=== PATIENT | female | born 1930 | race Caucasian/White ===

== ENCOUNTER 2017-06-15 20:43 | Emergency (ER) | payer MEDICARE ==
--- NOTE | 2017-06-15 21:38 | RAD ---
CHEST TWO VIEWS: History: Dyspnea. Comparison: 06-30-13 FINDINGS: Cardiac silhouette is upper limits of normal in size. Pulmonary vasculature is also upper limits of n ormal with mild reticular nodular interstitial prominence. Mediastinum is midline with post-operative changes, aortic calcification, and a dual-lead left subclavian cardiac electronic device. There is n o lobar consolidation or evidence of pneumothorax. IMPRESSION: 1. Borderline cardiomegaly and pulmonary vascular congestion. 2. Atherosclerosis. POS: PANDA
[2017-06-15 21:55] LABS: #Basophils 0.1 thou/uL (0.0-0.2); #Eosinphils 0.2 thou/uL (0.0-0.7); #Lymphocytes 2.3 thou/uL (1.20-3.40); #Monocytes 0.8 thou/uL (0.11-0.59); #Neutrophils 4.9 thou/uL (1.40-6.50); %Basophils 1.3 % (0.0-1.0); %Eosinophils 2.1 % (0.0-10.0); %Lymphocytes 27.6 % (21.0-51.0); %Monocytes 9.1 % (0.0-10.0); %Neutrophils 59.8 % (42.0-75.0); Hemoglobin 12.2 g/dL (12.0-16.0); Mean Corpuscular HGB CONC 32.6 g/dL (32.0-36.0); Mean Corpuscular Volume 92.2 fl (81.0-99.0); Mean Platelet Volume 7.6 fL (7.4-10.4); Platelet Count 170 thou/uL (130-400); Red Blood Cell (RBC) Count 4.07 mill/uL (4.20-5.40); White Blood Cell (WBC) Count 8.3 thou/uL (4.8-10.8)
[2017-06-15 22:06] LABS: ALT (SGPT) 28 U/L (8-55); AST (SGOT) 24 U/L (5-34); Alkaline Phosphatase 77 U/L (40-150); Anion Gap 15 mmol/L (10-20); BUN (Urea Nitrogen) 28 mg/dL (9.8-20.1); Bilirubin, Total 0.4 mg/dL (0.2-1.2); Calc. Creatinine Clearance 0 mL/min (70-130); Calcium 9.2 mg/dL (7.8-10.44); Carbon Dioxide 25 mmol/L (23-31); Chloride 107 mmol/L (98-107); Estimated GFR-MDRD 57; Globulin 3.2 g/dL (2.4-3.5); Glucose 107 mg/dL (83-110); Potassium 3.3 mmol/L (3.5-5.1); Protein, Total 7.2 g/dL (6.0-8.3); Sodium 144 mmol/L (136-145)
[2017-06-15 22:08] LABS: CKMB 2.5 ng/mL (0-6.6); Troponin I 0.012 ng/mL (< 0.028)
[2017-06-15] MEDS ORDERED: Furosemide 40 MG/4 ML VIAL ONE (22:30)
[2017-06-15] MEDS ORDERED: Nitroglycerin 0.4 MG TAB (25 Tab Bottle) ONE (22:30)
== END 2017-06-15 23:18 | disposition short-term general hospital (02) ==
LOC: BURERS 20:43
DX: I11.0 Hypertensive heart disease with heart failure (principal); I50.9 Heart failure, unspecified; I25.2 Old myocardial infarction; K21.9 Gastro-esophageal reflux disease without esophagitis; E78.5 Hyperlipidemia, unspecified; Z79.899 Other long term (current) drug therapy; Z79.82 Long term (current) use of aspirin
CPT/HCPCS: 71020; 80053; 82553; 83880; 84484; 85025; 93005; 96374; J1940

== ENCOUNTER 2017-08-17 10:00 | Emergency (ER) | payer MEDICARE ==
[2017-08-17 11:04] LABS: Bilirubin Negative (Negative); Blood, Urine Negative (Negative); Clarity Clear (Clear); Glucose, Urine (Dipstick) Negative (Negative); Leukocyte Negative (Negative); Nitrite Negative (Negative); Protein, Urine (Dipstick) Negative (Neg-Trace); Urobilinogen 0.2 mg/dL (0.2-1.0); pH, Urine 5.5 (5.0-9.0)
--- NOTE | 2017-08-17 21:29 | CT ---
CT OF THE BRAIN WITHOUT CONTRAST 08/17/17 Comparison is made with the 04/10/15 study. The ventricles are normal in size for age and atrophy and show no shift. No intracranial bleeding, ed franco, or mass was seen. Minimal patchy hypolucency is seen in the deep white matter. There has been no adverse change since 2014. The visible paranasal sinuses are clear. IMPRESSION: No acute intracranial finding. POS: HOME
== END 2017-08-17 11:25 | disposition home or self-care (01) ==
LOC: BURERS 10:00
DX: I10 Essential (primary) hypertension (principal); I25.2 Old myocardial infarction; K21.9 Gastro-esophageal reflux disease without esophagitis; E78.5 Hyperlipidemia, unspecified; Z79.82 Long term (current) use of aspirin; Z79.899 Other long term (current) drug therapy
CPT/HCPCS: 70450; 81003

== ENCOUNTER 2018-03-12 13:37 | Emergency (ER) | payer MEDICARE ==
[2018-03-12 14:19] LABS: ALT (SGPT) 16 U/L (8-55); AST (SGOT) 13 U/L (5-34); Albumin 4.1 g/dL (3.4-4.8); Alkaline Phosphatase 92 U/L (40-150); Anion Gap 14 mmol/L (10-20); BUN (Urea Nitrogen) 62 mg/dL (9.8-20.1); Bilirubin, Total 0.4 mg/dL (0.2-1.2); Calc. Creatinine Clearance 0 mL/min (70-130); Calcium 9.1 mg/dL (7.8-10.44); Carbon Dioxide 16 mmol/L (23-31); Chloride 113 mmol/L (98-107); Estimated GFR-MDRD 26; Globulin 3.1 g/dL (2.4-3.5); Glucose 120 mg/dL (83-110); Potassium 6.2 mmol/L (3.5-5.1); Protein, Total 7.2 g/dL (6.0-8.3); Sodium 137 mmol/L (136-145); Troponin I Less than 0.010 ng/mL (< 0.028)
[2018-03-12 14:19] LABS: Bilirubin Negative (Negative); Blood, Urine Negative (Negative); Clarity Clear (Clear); Glucose, Urine (Dipstick) Negative (Negative); Leukocyte Negative (Negative); Nitrite Negative (Negative); Protein, Urine (Dipstick) Negative (Neg-Trace); Urobilinogen 0.2 mg/dL (0.2-1.0)
[2018-03-12 14:22] LABS: Hemoglobin 11.7 g/dL (12.0-16.0); Mean Corpuscular Volume 82.9 fL (78.0-98.0); Red Blood Cell (RBC) Count 3.77 mill/uL (4.20-5.40)
[2018-03-12 14:23] LABS: %Basophils 0.7 % (0.0-1.0); %Eosinophils 0.9 % (0.0-10.0); %Lymphocytes 19.3 % (21.0-51.0); %Monocytes 5.2 % (0.0-10.0); %Neutrophils 73.8 % (42.0-75.0); Manual Diff?? YES; Mean Corpuscular HGB CONC 37.4 g/dL (32.0-36.0); Mean Corpuscular Hemoglobin 31.1 pg (27.0-31.0); Mean Platelet Volume 6.5 fL (7.4-10.4); Platelet Count 213 thou/uL (130-400); RBC Distribution Width 12.2 % (11.5-14.5)
[2018-03-12 14:24] LABS: #Basophils 0.1 thou/uL (0.0-0.2); #Eosinphils 0.1 thou/uL (0.0-0.7); #Lymphocytes 2.5 thou/uL (1.20-3.40); #Monocytes 0.7 thou/uL (0.11-0.59); #Neutrophils 9.6 thou/uL (1.40-6.50); MDiff Complete? YES
[2018-03-12] MEDS ORDERED: Albuterol Sulfate 1.25 MG/3 ML NEB ONE (14:34)
[2018-03-12] MEDS ORDERED: Dextrose 50% Abboject 50 ML SYRINGE ONE (14:34)
[2018-03-12] MEDS ORDERED: Insulin Regular 300 UNITS/3 ML VIAL ONE (14:34)
[2018-03-12] MEDS ORDERED: Albuterol Sulfate 2.5 mg/3 ml Neb ONE (14:37)
--- NOTE | 2018-03-12 19:05 | RAD ---
PORTABLE CHEST: 03/12/2018 COMPARISON: 06/15/2017 FINDINGS: Mild cardiomegaly is the same as before. The cardiac pacer remains in place. There is no clear vasc ular congestion, edema, or significant pleural effusion. The lungs are clear. Some minimal haziness in the right cardiophrenic angle is a fat pad and does not appear much different than last time. De generative changes are prominent in the shoulders, particularly the right. IMPRESSION: Cardiomegaly but no acute finding. POS: HOME
== END 2018-03-12 14:33 | disposition short-term general hospital (02) ==
LOC: BURERS 13:37
DX: E87.5 Hyperkalemia (principal); E86.0 Dehydration; I25.2 Old myocardial infarction; K21.9 Gastro-esophageal reflux disease without esophagitis; E78.5 Hyperlipidemia, unspecified; I11.0 Hypertensive heart disease with heart failure; I50.9 Heart failure, unspecified; Z79.899 Other long term (current) drug therapy; Z79.82 Long term (current) use of aspirin
CPT/HCPCS: 71045; 80053; 81003; 82553; 83605; 83880; 84484; 85025; 93005; 94760; 96361; 96374; 96375; J1815; J7611

== ENCOUNTER 2018-03-19 00:23 | Emergency (ER) | payer MEDICARE ==
[2018-03-19 00:59] LABS: Anion Gap 16 mmol/L (10-20); BUN (Urea Nitrogen) 42 mg/dL (9.8-20.1); Calc. Creatinine Clearance 0 mL/min (70-130); Calcium 8.6 mg/dL (7.8-10.44); Carbon Dioxide 19 mmol/L (23-31); Chloride 110 mmol/L (98-107); Estimated GFR-MDRD 33; Glucose 110 mg/dL (83-110); Potassium 4.7 mmol/L (3.5-5.1); Sodium 140 mmol/L (136-145)
[2018-03-19 01:04] LABS: #Basophils 0.1 thou/uL (0.0-0.2); #Eosinphils 0.1 thou/uL (0.0-0.7); #Monocytes 0.7 thou/uL (0.11-0.59); #Neutrophils 6.3 thou/uL (1.40-6.50); %Basophils 0.9 % (0.0-1.0); %Eosinophils 1.1 % (0.0-10.0); %Lymphocytes 22.2 % (21.0-51.0); %Monocytes 7.2 % (0.0-10.0); %Neutrophils 68.6 % (42.0-75.0); CKMB 1.5 ng/mL (0-6.6); Hemoglobin 10.4 g/dL (12.0-16.0); MDiff Complete? YES; Mean Corpuscular HGB CONC 37.8 g/dL (32.0-36.0); Mean Corpuscular Hemoglobin 31.2 pg (27.0-31.0); Mean Corpuscular Volume 82.6 fL (78.0-98.0); Mean Platelet Volume 6.1 fL (7.4-10.4); PLT Morphology Comment Appears Adequate; Platelet Count 163 thou/uL (130-400); RBC Distribution Width 11.9 % (11.5-14.5); RBC Morphology Normal; Red Blood Cell (RBC) Count 3.33 mill/uL (4.20-5.40); Small Platelets SLIGHT; Troponin I Less than 0.010 ng/mL (< 0.028); White Blood Cell (WBC) Count 9.1 thou/uL (4.8-10.8)
== END 2018-03-19 01:15 | disposition home or self-care (01) ==
LOC: BURERS 00:23
DX: I11.0 Hypertensive heart disease with heart failure (principal); I50.9 Heart failure, unspecified; I25.2 Old myocardial infarction; K21.9 Gastro-esophageal reflux disease without esophagitis; E78.5 Hyperlipidemia, unspecified; Z79.82 Long term (current) use of aspirin; Z79.899 Other long term (current) drug therapy
CPT/HCPCS: 36415; 80048; 82553; 84484; 85025; 93005